=== PATIENT | male | born 1945 | race Caucasian/White ===

== ENCOUNTER 2016-08-08 12:35 | Emergency (ER) | payer MEDICARE ==
[2016-08-08 12:47] VITALS: BP 140/73; PULSE 76; RESP 20; TEMP 98
[2016-08-08] MEDS ORDERED: IBUPROFEN 800 MG TAB PO STA (12:52)
--- NOTE | 2016-08-08 12:54 | ED ---
Upper Extremity HPI - General Chief Complaint: Extremity Injury, Upper Stated Complaint: Hand Injury Time Seen by Provider: 08/08/16 12:50 Source: patient, RN notes reviewed Mode of arrival: ambulatory Limitations: no limitations - History of Present Illness Initial Comments: Patient is a 71-year-old male presents to emergency room for evaluation of right wrist pain. Patient states that he tripped and fell 2 days ago landing on his right wrist. Patient states he still having pain. Patient denies taking any Tylenol or Motrin for pain. Patient states been putting ice on the area with little relief of symptoms. Patient states having 8 out of 10 pain. Patient states the pain is worse when he presses over the area or flexes and extends his wrist. Patient denies any numbness or tingling in his fingers. Patient denies any other injuries during incident. - Related Data Home Medications Medication Instructions Recorded Confirmed No Known Home Medications [No 08/08/16 08/08/16 Known Home Medications] Allergies Allergy/AdvReac Type Severity Reaction Status Date / Time No Known Allergies Allergy Verified 08/08/16 12:47 Review of Systems ROS Statement: Those systems with pertinent positive or pertinent negative responses have been documented in the HPI. ROS Other: All systems not noted in ROS Statement are negative. Past Medical History Past Medical History: Hyperlipidemia, Hypertension History of Any Multi-Drug Resistant Organisms: None Reported Past Surgical History: No Surgical Hx Reported Past Psychological History: No Psychological Hx Reported Smoking Status: Current every day smoker Past Alcohol Use History: None Reported Past Drug Use History: None Reported General Exam - General Exam Comments Initial Comments: Sitting in exam room in no acute distress. Limitations: no limitations General appearance: alert, in no apparent distress Head exam: Present: atraumatic, normocephalic, normal inspection Eye exam: Present: normal appearance ENT exam: Present: normal exam Neck exam: Present: normal inspection Respiratory exam: Absent: respiratory distress Right Hand Wrist exam: Present: full ROM, tenderness (Tenderness on palpating over distal radius), swelling. Absent: ecchymosis, deformity Neuro motor exam: Present: thumb opposition intact, thumb IP flexion intact, thumb adduction intact, fingers 2-5 abduction intact Vascular: Present: normal capillary refill (Capillary refill less than 2 seconds ), radial pulse (2+), ulnar pulse (2+) Back exam: Present: normal inspection Neurological exam: Present: alert, oriented X3, CN II-XII intact, normal gait Psychiatric exam: Present: normal affect, normal mood Skin exam: Present: warm, dry, intact, normal color. Absent: rash Course Vital Signs 08/08/16 12:44 Temperature 98 F Pulse Rate 76 Respiratory 20 Rate Blood Pressure 140/73 O2 Sat by Pulse 98 Oximetry Procedures - Orthopedic Splinting/Casting Injury #1 Side: right Upper Extremity Injury Location: wrist Upper Extremity Immobilizer: volar splint (Short arm OCL volar splint placed. 3 x 12". Neurovascular function assessed and intact.) Medical Decision Making - Medical Decision Making Patient is a 71-year-old male presents to the emergency room for evaluation of right wrist pain. Right wrist/hand x-ray significant for distal minimally displaced radial fracture. Patient placed in a short arm volar splint and advised to follow-up with ear nose and throat specialist. Patient states he understands everything that was discussed with him. Return parameters discussed. Case discussed with Dr. Roach. - Radiology Data Radiology results: report reviewed, image reviewed Disposition Clinical Impression: Distal radius fracture, right, Fall Disposition: HOME SELF-CARE Condition: Good Instructions: Wrist Fracture in Adults (ED) Additional Instructions: Rest, elevate and ice on and off for 10-15 minutes for the next 24-48 hours. Do not get splint wet. Do not remove splint until follow-up with ear nose and throat specialist Please follow-up with ear nose and throat specialist in 24-48 hours. Take Tylenol or Motrin as needed for pain. If new symptoms develop or symptoms worsen, please return to the ER. Referrals: Jona Elise DO [Doctor of Osteopathic Medicine] - 1-2 days Time of Disposition: 13:22
--- NOTE | 2016-08-08 13:19 | XR ---
EXAMINATION TYPE: XR hand complete RT, XR wrist complete RT DATE OF EXAM: 08/08/2016 1:11 PM CLINICAL HISTORY: pain TECHNIQUE: Frontal, lateral and oblique images of the right hand and wrist are obtained. COMPARISON: None. FINDINGS: There is minimally displaced distal radial fracture without definite intra-articular extension. Mild soft tissue edema. No additional acute fractures seen. Chronic deformity of the fifth metacarpal. Rad ius is intact. IMPRESSION: Minimally displaced distal radial fracture. ICD 10 closed FRACTURE, INITIAL EVALUATION
== END 2016-08-08 13:35 | disposition home or self-care (01) ==
LOC: EC 12:35
DX: S52.501A Unspecified fracture of the lower end of right radius, initial encounter for closed fracture (principal); F17.200 Nicotine dependence, unspecified, uncomplicated; W01.0XXA Fall on same level from slipping, tripping and stumbling without subsequent striking against object, initial encounter
CPT/HCPCS: 29125; 99283

== ENCOUNTER → 2018-02-20 | Outpatient (CLI) | payer MEDICARE ==
--- NOTE | 2018-02-20 14:38 | XR ---
EXAMINATION TYPE: XR chest 2V DATE OF EXAM: 02/20/2018 COMPARISON: NONE HISTORY: Smoker TECHNIQUE: Frontal and lateral views of the chest are obtained on 3 images. FINDINGS: There is no focal air space opacity, pleural effusion, or pneumothorax seen. The cardiac silhouette size is within normal limits. Increased lung volumes suggest underlying COPD. The osseous structures are intact. IMPRESSION: No acute cardiopulmonary process. There may be underlying emphysema.
--- NOTE | 2018-02-20 14:41 | US ---
EXAMINATION TYPE: US duplex aorta DATE OF EXAM: 02/20/2018 COMPARISON: NONE CLINICAL HISTORY: Z13.9 ENCOUNTER FOR SCREENING. Smoker, high cholesterol, no HTN, No family hx of AA A EXAM MEASUREMENTS: Abdominal Aorta: Proximal: 2.2 x 2.1 cm Mid: 2.4 x 2.5 cm Distal: 1.9 x 2.3 cm Bifurcation: Right- 1.3 x 0.9 cm Left- 1.4 x 0.9 cm AAA seen between mid and distal Aorta - 3.1 x 3.2 cm Grayscale and color Doppler imaging performed IMPRESSION: Infrarenal abdominal aortic ectasia, follow-up recommended
== END | disposition home or self-care (01) ==
LOC: RADUSWWP 10:59
PROVIDERS: ATTEND Family Medicine
DX: I77.811 Abdominal aortic ectasia (principal); F17.200 Nicotine dependence, unspecified, uncomplicated
CPT/HCPCS: 71046; 93979

== ENCOUNTER → 2018-07-23 | Outpatient (CLI) | payer MEDICARE ==
--- NOTE | 2018-07-23 10:32 | XR ---
EXAMINATION TYPE: XR chest 2V DATE OF EXAM: 07/23/2018 COMPARISON: 02/20/2018 HISTORY: Shortness of breath TECHNIQUE: Frontal and lateral views of the chest are obtained. FINDINGS: Scattered senescent parenchymal changes noted. Hyperinflation compatible with COPD. No evidence for infiltrate. No evidence for atelectasis. Heart size is stable. Mediastinal structures are stable and grossly unremarkable. No evidence for hilar prominence. Degenerative changes dorsal spine. IMPRESSION: 1. No evidence for acute pulmonary disease.
== END ==
LOC: RADXRMAIN 10:11
PROVIDERS: ATTEND Physician Assistant
DX: J44.9 Chronic obstructive pulmonary disease, unspecified (principal)
CPT/HCPCS: 71046

== ENCOUNTER → 2018-10-01 | Outpatient (CLI) | payer MEDICARE ==
--- NOTE | 2018-10-01 12:08 | US ---
EXAMINATION TYPE: US duplex aorta DATE OF EXAM: 10/01/2018 COMPARISON: Prior ultrasound 02/20/2018 CLINICAL HISTORY: I71.4 Abd aortic aneurysm. EXAM MEASUREMENTS: Abdominal Aorta: Proximal: 2.4cm Mid: 3.2 cm Distal: 2.2cm Bifurcation: Rt:1.2cm Lt: 1.4cm AAA at mid distal area measuring 3.0 x 3.2. Extensive overlying bowel gas slightly limiting study. Grayscale, color Doppler, spectral Doppler imaging performed IMPRESSION: Abdominal aortic aneurysm appears stable.
== END ==
LOC: RADUSWWP 09:15
PROVIDERS: ATTEND Family Medicine
DX: I71.4 Abdominal aortic aneurysm, without rupture (principal)
CPT/HCPCS: 93979

== ENCOUNTER 2019-02-10 14:21 | Inpatient (IN) | payer MEDICARE ==
[2019-02-10 16:19] LABS: Basophils # (A) 0.1 k/uL (0-0.2); Basophils % (A) 1 %; Eosinophils # (A) 1.3 k/uL (0-0.7); Eosinophils % (A) 14 %; HCT 44.9 % (39.0-53.0); Hypochromasia Marked; Lymphocytes # (A) 1.1 k/uL (1.0-4.8); Lymphocytes % (A) 12 %; MCH 28.7 pg (25.0-35.0); Macrocytosis Slight; Mean Platelet Volume 6.2; Monocytes # (A) 0.5 k/uL (0-1.0); Monocytes % (A) 6 %; Neutrophils # (A) 5.8 k/uL (1.3-7.7); Neutrophils % (A) 65 %; Platelet Count 315 k/uL (150-450); RBC 4.54 m/uL (4.30-5.90); RDW 14.8 % (11.5-15.5); WBC 8.9 k/uL (3.8-10.6)
[2019-02-10 16:35] LABS: ALT 15 U/L (21-72); AST 19 U/L (17-59); African American GFR (CKD) >90 (>60 ml/min/1.73 sqM); Albumin 3.5 g/dL (3.5-5.0); Alkaline Phosphatase 77 U/L (38-126); Anion Gap 3 mmol/L; Blood Urea Nitrogen 11 mg/dL (9-20); C Reactive Protein 9.3 mg/L (<10.0); Calcium 8.7 mg/dL (8.4-10.2); Carbon Dioxide 38 mmol/L (22-30); Chloride 99 mmol/L (98-107); Glucose 135 mg/dL (74-99); Potassium 4.7 mmol/L (3.5-5.1); Sodium 140 mmol/L (137-145); Total Bilirubin 0.3 mg/dL (0.2-1.3); Total Protein 6.5 g/dL (6.3-8.2)
--- NOTE | 2019-02-10 17:07 | US ---
EXAMINATION TYPE: US venous doppler duplex LE LT DATE OF EXAM: 02/10/2019 3:57 PM COMPARISON: NONE CLINICAL HISTORY: edema. SIDE PERFORMED: Left TECHNIQUE: The lower extremity deep venous system is examined utilizing real time linear array sonog harman with graded compression, doppler sonography and color-flow sonography. VESSELS IMAGED: External Iliac Vein (EIV) Common Femoral Vein Deep Femoral Vein Greater Saphenous Vein * Femoral Vein Popliteal Vein Small Saphenous Vein * Proximal Calf Veins (* superficial vessels) Multiple enlarged nodes noted left groin. Left Leg: Negative for DVT IMPRESSION: There are inguinal lymph nodes. Appear morphologically normal. No evidence of deep venous thrombosis in the left leg.
[2019-02-10 17:16] LABS: Erythrocyte Sedimentation Rate 13 mm/hr (0-15)
[2019-02-10] MEDS ORDERED: AMPICILLIN-SULBACTAM 3 GM in SODIUM CHLORIDE 0.9% 100 ML IVPB STA (17:32)
[2019-02-10] MEDS ORDERED: VANCOMYCIN 1,500 MG in SODIUM CHLORIDE 0.9% 250 ML IVPB STA (17:33)
[2019-02-10] MEDS ORDERED: NALOXONE 0.4 MG/ML 1 ML VIAL IV PRN (17:37)
--- NOTE | 2019-02-10 17:37 | ED ---
Extremity Problem HPI - General Chief complaint: Extremity Problem,Nontraumatic Stated complaint: Foot Swelling Time Seen by Provider: 02/10/19 14:55 Source: patient, family Mode of arrival: wheelchair Limitations: no limitations - History of Present Illness Initial comments: The patient is a 73-year-old male with minimal past medical history who presents to the emergency room with reported swollen left lower extremity. The patient has recently for scabies. States that his lower extremities were very pruritic and he was itching them. He does have some open wounds his left lower extremity. He also developed significant left lower extremity edema. No history of DVT or PE. Admits to mild pain in his lower extremity which has affected his ambulation. Denies a history of congestive heart failure. Denies orthopnea, cough, fevers or chills. No chest pain or shortness of breath. He does wear chronic oxygen at home for COPD. Denies any trauma to the extremity. Does note warmth and redness. Denies any abdominal pain or distention. There are no other alleviating, precipitating or modifying factors - Related Data Previous Rx's Medication Instructions Recorded Acetaminophen Tab [Tylenol] 650 mg PO Q6HR PRN tab 02/14/19 Cephalexin [Keflex] 500 mg PO Q8HR #21 cap 02/14/19 Ipratropium-Albuterol Nebulize 3 ml INHALATION RT-QID ampul.neb 02/14/19 [Duoneb 0.5 mg-3 mg/3 ml Soln] Nicotine 21Mg/24Hr Patch [Habitrol] 1 patch TRANSDERM DAILY #30 patch 02/14/19 Nystatin 100,000 Unit/gm Oint 1 applic TOPICAL BID #1 tube 02/14/19 [Mycostatin Oint] Pantoprazole [Protonix] 40 mg PO DAILY #30 tablet.dr 02/14/19 Triamcinolone 0.1% Ointment 1 applic TOPICAL BID #1 tube 02/14/19 [Kenalog 0.1% Ointment] predniSONE 10 mg PO DIRECTED #30 tab 02/14/19 Allergies Allergy/AdvReac Type Severity Reaction Status Date / Time No Known Allergies Allergy Verified 02/10/19 15:12 Review of Systems ROS Statement: Those systems with pertinent positive or pertinent negative responses have been documented in the HPI. ROS Other: All systems not noted in ROS Statement are negative. Past Medical History Past Medical History: COPD, Hyperlipidemia, Hypertension History of Any Multi-Drug Resistant Organisms: None Reported Past Surgical History: No Surgical Hx Reported Past Psychological History: No Psychological Hx Reported Smoking Status: Current every day smoker Past Alcohol Use History: None Reported Past Drug Use History: None Reported General Exam Limitations: no limitations General appearance: alert, in no apparent distress Head exam: Present: atraumatic, normocephalic Eye exam: Present: normal appearance, PERRL ENT exam: Present: normal exam, mucous membranes moist Respiratory exam: Present: wheezes, decreased breath sounds Cardiovascular Exam: Present: regular rate, normal rhythm GI/Abdominal exam: Present: soft. Absent: distended, tenderness, guarding, rebound, rigid Extremities exam: Present: other (left lower extremity has 4+ pitting edema which extends from below the knee to the foot. No crepitance. ) Neurological exam: Present: alert, oriented X3 Psychiatric exam: Present: normal mood Skin exam: Present: warm, dry, other (linear abrasions. Entire left calf is warm to the touch, swollen. No induration or drainage. ) Course Vital Signs 02/10/19 02/10/19 02/10/19 14:50 15:06 15:30 Temperature 97.4 F L Pulse Rate 76 Respiratory 16 16 Rate Blood Pressure 119/65 135/82 135/82 O2 Sat by Pulse 95 99 98 Oximetry 02/10/19 02/10/19 02/10/19 16:00 16:30 17:00 Temperature Pulse Rate 72 Respiratory 18 19 Rate Blood Pressure 138/96 137/76 142/77 O2 Sat by Pulse 97 93 L 98 Oximetry 02/10/19 02/10/19 02/10/19 17:30 18:19 18:38 Temperature 97.6 F Pulse Rate 79 80 Respiratory 18 Rate Blood Pressure 165/86 122/99 O2 Sat by Pulse 91 L 93 L Oximetry Medical Decision Making - Medical Decision Making Upon arrival the patient is placed into room 22. A thorough history and physical exam was performed. I did recommend laboratory studies. CBC and CMP are unremarkable. BNP is elevated at 536. Venous duplex is performed and demonstrates no clot. I did discuss his results the patient. Because of the clinical picture, I did recommend hospital admission for IV antibiotics. Patient and his family did agree to this. I ordered blood cultures. The patien t was placed on Unasyn and Vanco. I called and discussed the case with Dr. Huitron who accepted admission for the patient. He requested that I consult Dr. Galo. Patient was transferred to the floor in stable condition - Lab Data Result diagrams: 02/14/19 10:13 02/14/19 10:13 Lab Results 02/10/19 02/10/19 02/10/19 Range/Units 16:10 16:10 16:10 WBC 8.9 (3.8-10.6) k/uL RBC 4.54 (4.30-5.90) m/uL Hgb 13.0 (13.0-17.5) gm/dL Hct 44.9 (39.0-53.0) % MCV 99.0 (80.0-100.0) fL MCH 28.7 (25.0-35.0) pg MCHC 29.0 L (31.0-37.0) g/dL RDW 14.8 (11.5-15.5) % Plt Count 315 (150-450) k/uL Neutrophils % 65 % Lymphocytes % 12 % Monocytes % 6 % Eosinophils % 14 % Basophils % 1 % Neutrophils # 5.8 (1.3-7.7) k/uL Lymphocytes # 1.1 (1.0-4.8) k/uL Monocytes # 0.5 (0-1.0) k/uL Eosinophils # 1.3 H (0-0.7) k/uL Basophils # 0.1 (0-0.2) k/uL Hypochromasia Marked Macrocytosis Slight ESR 13 (0-15) mm/hr Sodium 140 (137-145) mmol/L Potassium 4.7 (3.5-5.1) mmol/L Chloride 99 (98-107) mmol/L Carbon Dioxide 38 H (22-30) mmol/L Anion Gap 3 mmol/L BUN 11 (9-20) mg/dL Creatinine 0.80 (0.66-1.25) mg/dL Est GFR (CKD-EPI)AfAm >90 (>60 ml/min/1.73 sqM) Est GFR (CKD-EPI)NonAf 89 (>60 ml/min/1.73 sqM) Glucose 135 H (74-99) mg/dL Estimated Ave Glu mg/dL Hemoglobin A1c (4.0-6.0) % Calcium 8.7 (8.4-10.2) mg/dL Total Bilirubin 0.3 (0.2-1.3) mg/dL AST 19 (17-59) U/L ALT 15 L (21-72) U/L Alkaline Phosphatase 77 (38-126) U/L C-Reactive Protein 9.3 (<10.0) mg/L NT-Pro-B Natriuret Pep 536 pg/mL Total Protein 6.5 (6.3-8.2) g/dL Albumin 3.5 (3.5-5.0) g/dL TSH (0.465-4.680) mIU/L 02/10/19 02/10/19 02/11/19 Range/Units 16:10 16:10 07:38 WBC 9.2 (3.8-10.6) k/uL RBC 4.50 (4.30-5.90) m/uL Hgb 13.6 (13.0-17.5) gm/dL Hct 45.4 (39.0-53.0) % MCV 100.9 H (80.0-100.0) fL MCH 30.2 (25.0-35.0) pg MCHC 29.9 L (31.0-37.0) g/dL RDW 14.6 (11.5-15.5) % Plt Count 320 (150-450) k/uL Neutrophils % 60 % Lymphocytes % 15 % Monocytes % 7 % Eosinophils % 15 % Basophils % 1 % Neutrophils # 5.5 (1.3-7.7) k/uL Lymphocytes # 1.4 (1.0-4.8) k/uL Monocytes # 0.6 (0-1.0) k/uL Eosinophils # 1.4 H (0-0.7) k/uL Basophils # 0.1 (0-0.2) k/uL Hypochromasia Marked Macrocytosis Slight ESR (0-15) mm/hr Sodium (137-145) mmol/L Potassium (3.5-5.1) mmol/L Chloride (98-107) mmol/L Carbon Dioxide (22-30) mmol/L Anion Gap mmol/L BUN (9-20) mg/dL Creatinine (0.66-1.25) mg/dL Est GFR (CKD-EPI)AfAm (>60 ml/min/1.73 sqM) Est GFR (CKD-EPI)NonAf (>60 ml/min/1.73 sqM) Glucose (74-99) mg/dL Estimated Ave Glu mg/dL 154 Hemoglobin A1c 7.0 H (4.0-6.0) % Calcium (8.4-10.2) mg/dL Total Bilirubin (0.2-1.3) mg/dL AST (17-59) U/L ALT (21-72) U/L Alkaline Phosphatase (38-126) U/L C-Reactive Protein (<10.0) mg/L NT-Pro-B Natriuret Pep pg/mL Total Protein (6.3-8.2) g/dL Albumin (3.5-5.0) g/dL TSH 2.950 (0.465-4.680) mIU/L 02/11/19 02/12/19 02/12/19 Range/Units 07:38 07:24 07:24 WBC 9.2 (3.8-10.6) k/uL RBC 4.17 L (4.30-5.90) m/uL Hgb 12.4 L (13.0-17.5) gm/dL Hct 41.7 (39.0-53.0) % MCV 100.0 (80.0-100.0) fL MCH 29.7 (25.0-35.0) pg MCHC 29.7 L (31.0-37.0) g/dL RDW 14.7 (11.5-15.5) % Plt Count 321 (150-450) k/uL Neutrophils % 63 % Lymphocytes % 11 % Monocytes % 6 % Eosinophils % 16 % Basophils % 2 % Neutrophils # 5.8 (1.3-7.7) k/uL Lymphocytes # 1.0 (1.0-4.8) k/uL Monocytes # 0.6 (0-1.0) k/uL Eosinophils # 1.5 H (0-0.7) k/uL Basophils # 0.2 (0-0.2) k/uL Hypochromasia Marked Macrocytosis Slight ESR (0-15) mm/hr Sodium 140 138 (137-145) mmol/L Potassium 5.3 H 4.4 (3.5-5.1) mmol/L Chloride 101 100 (98-107) mmol/L Carbon Dioxide 37 H 34 H (22-30) mmol/L Anion Gap 2 4 mmol/L BUN 14 12 (9-20) mg/dL Creatinine 0.82 0.76 (0.66-1.25) mg/dL Est GFR (CKD-EPI)AfAm >90 >90 (>60 ml/min/1.73 sqM) Est GFR (CKD-EPI)NonAf 88 >90 (>60 ml/min/1.73 sqM) Glucose 109 H 109 H (74-99) mg/dL Estimated Ave Glu mg/dL Hemoglobin A1c (4.0-6.0) % Calcium 8.3 L 8.1 L (8.4-10.2) mg/dL Total Bilirubin (0.2-1.3) mg/dL AST (17-59) U/L ALT (21-72) U/L Alkaline Phosphatase (38-126) U/L C-Reactive Protein (<10.0) mg/L NT-Pro-B Natriuret Pep pg/mL Total Protein (6.3-8.2) g/dL Albumin (3.5-5.0) g/dL TSH (0.465-4.680) mIU/L Disposition Clinical Impression: Cellulitis and abscess of left leg Disposition: ADMITTED IP TO THIS HOSP Condition: Stable Is patient prescribed a controlled substance at d/c from ED?: No Decision to Admit Reason: Admit from EC Decision Date: 02/10/19 Decision Time: 17:37
[2019-02-10] MEDS ORDERED: VANCOMYCIN IV PER PHARMACY 1 EACH MISC MISCELLANE PRN (18:32)
[2019-02-10] MEDS ORDERED: ACETAMINOPHEN TAB 325 MG TAB PO PRN (19:51)
[2019-02-10] MEDS: IPRATROPIUM-ALBUTEROL 3 ML NEB INHALATION SCH (21:11)
[2019-02-10] MEDS ORDERED: IPRATROPIUM-ALBUTEROL 3 ML NEB INHALATION PRN (21:12)
--- NOTE | 2019-02-10 21:19 | HP ---
HISTORY AND PHYSICAL 73-year-old white male with bad hearing loss and COPD. Takes albuterol updrafts at home. Apparently, came in with severely left leg swelling over the past 2 weeks, large redness and swelling, came to the emergency room. Progressive large amount of cellulitis from the toes up to the knee. A large amount of the lymphedema type changes. Left leg ultrasound for DVT was negative. Apparently his only home medicines are albuterol or DuoNeb updrafts t.i.d. at home. SOCIAL HISTORY: Smokes and does not do alcohol intermittently. REVIEW OF SYSTEMS: Negative except for redness and swelling in the left leg and COPD with some dyspnea. PHYSICAL EXAM: Vital signs stable. Afebrile. Cardiovascular: S1, S2. Lungs scattered wheeze x4. Rhonchi x4. Hematology: Left leg lymphedema type changes with redness and scab formation from the toes up to the knee. Cardiovascular: S1-S2. Lungs scattered wheeze x4. Psych: Fair mood and affect. HEENT: Hearing loss bilaterally, gives appropriate answers, but he cannot hear you. Psych: Fair mood and affect. ASSESSMENT: 1. Cellulitis, left leg. 2. Lymphedema, left leg. 3. Chronic obstructive pulmonary disease. Continue with IV antibiotics, lymphedema type. Compression stockings will be given. IV vancomycin. Infectious disease consult will be done. MMODL / IJN: [id number] /
[2019-02-11] MEDS ORDERED: VANCOMYCIN 1,500 MG in SODIUM CHLORIDE 0.9% 250 ML IVPB SCH (07:00)
[2019-02-11] MEDS: IPRATROPIUM-ALBUTEROL 3 ML NEB INHALATION SCH ×4 (07:28→19:37)
[2019-02-11 08:08] LABS: African American GFR (CKD) >90 (>60 ml/min/1.73 sqM); Anion Gap 2 mmol/L; Blood Urea Nitrogen 14 mg/dL (9-20); Calcium 8.3 mg/dL (8.4-10.2); Carbon Dioxide 37 mmol/L (22-30); Chloride 101 mmol/L (98-107); Glucose 109 mg/dL (74-99); Potassium 5.3 mmol/L (3.5-5.1); Sodium 140 mmol/L (137-145)
[2019-02-11 08:19] LABS: Basophils # (A) 0.1 k/uL (0-0.2); Basophils % (A) 1 %; Eosinophils # (A) 1.4 k/uL (0-0.7); Eosinophils % (A) 15 %; HCT 45.4 % (39.0-53.0); HGB 13.6 gm/dL (13.0-17.5); Hypochromasia Marked; Lymphocytes # (A) 1.4 k/uL (1.0-4.8); Lymphocytes % (A) 15 %; MCH 30.2 pg (25.0-35.0); MCHC 29.9 g/dL (31.0-37.0); MCV 100.9 fL (80.0-100.0); Macrocytosis Slight; Monocytes # (A) 0.6 k/uL (0-1.0); Monocytes % (A) 7 %; Neutrophils # (A) 5.5 k/uL (1.3-7.7); Neutrophils % (A) 60 %; Platelet Count 320 k/uL (150-450); RDW 14.6 % (11.5-15.5); WBC 9.2 k/uL (3.8-10.6)
--- NOTE | 2019-02-11 12:01 | XR ---
EXAMINATION TYPE: XR chest 2V DATE OF EXAM: 02/11/2019 COMPARISON: Prior chest x-ray 07/23/2018 HISTORY: COPD TECHNIQUE: Frontal and lateral views of the chest are obtained. FINDINGS: There are prominent lung volumes present consistent with patient's history of COPD. Interst itium is increased. Aorta is dense. There is no focal air space opacity, pleural effusion, or pneumot horax seen. The cardiac silhouette size is within normal limits. The osseous structures are intact . Thoracic spondylosis is noted. IMPRESSION: No acute cardiopulmonary process. Possible interstitial lung disease.
[2019-02-11] MEDS ORDERED: NYSTAT-TRIAMCIN 100,000-0.1 UNIT/GM-% OINT 30 GM TUBE TOPICAL SCH (13:00)
[2019-02-11] MEDS: NYSTATIN 100,000 UNIT/GM OINT 30 GM TUBE TOPICAL SCH ×2 (13:40→20:48)
[2019-02-11] MEDS: TRIAMCINOLONE ACET 0.1% OINTMENT 15 GM TUBE TOPICAL SCH ×2 (13:40→20:48)
[2019-02-11] MEDS: BUDESONIDE 0.5 MG/2 ML NEBU INHALATION SCH (19:36)
--- NOTE | 2019-02-11 23:03 | P.CONS ---
History of Present Illness - Reason for Consult Consult date: 02/11/19 left lower extremity cellulitis Requesting physician: Chaitanya Huitron - Chief Complaint left leg swelling x few days - History of Present Illness patient is a 73 year male presented to the ER with the chief complaints of left leg swelling and redness that has been going on for the last few days patient denies any history of any trauma he did have less mobility r ecently but no long travel patient also have dry cracking skin to the left leg as well as to the left foot patient did have some malingering pain to the left leg area and this is about 5-10 and no radiation patient did have some blood but denies high-grade fever with these symptoms patient was evaluated by the physician on arrival. The patient has been afebrile but was normal he did have lower extremity Doppler was negative for DVT patient was started on vancomycin has been in the hospital infection does was consulted for further recommendation regarding antibiotic therapy Review of Systems Positive point has been mentioned in the HPI rest of the systems are negative Past Medical History Past Medical History: COPD, Hyperlipidemia, Hypertension Additional Past Medical History / Comment(s): Pt is poor historian, is unsure History of Any Multi-Drug Resistant Organisms: None Reported Past Surgical History: No Surgical Hx Reported Past Anesthesia/Blood Transfusion Reactions: No Reported Reaction Past Psychological History: No Psychological Hx Reported Smoking Status: Current every day smoker Past Alcohol Use History: None Reported Past Drug Use History: None Reported Medications and Allergies Home Medications Medication Instructions Recorded Confirmed Type No Known Home Medications 08/08/16 02/10/19 History Allergies Allergy/AdvReac Type Severity Reaction Status Date / Time No Known Allergies Allergy Verified 02/10/19 15:12 Physical Exam Vitals: Vital Signs Temp Pulse Pulse Resp BP Pulse Ox 02/11/19 22:43 20 02/11/19 19:50 80 02/11/19 19:49 98.3 F 89 146/76 91 L 02/11/19 19:37 80 02/11/19 16:14 78 02/11/19 16:01 78 02/11/19 12:54 97.8 F 76 16 127/65 93 L 02/11/19 11:02 80 02/11/19 10:52 76 02/11/19 07:37 80 02/11/19 07:28 74 90 L 02/11/19 05:00 97.9 F 76 18 137/84 94 L 02/11/19 00:00 20 Intake and Output 02/11/19 02/11/19 02/11/19 06:59 14:59 22:59 Intake Total 200 480 Output Total 250 Balance -50 480 Intake: Oral 200 480 Output: Urine 250 Other: Voiding Method Toilet Toilet Toilet Urinal Urinal Urinal # Voids 0 4 # Bowel Movements 0 GENERAL DESCRIPTION: an elderly male lying in bed, no distress. No tachypnea or accessory muscle of respiration use. HEENT: Shows Pallor , no scleral icterus. Oral mucous membrane is dry. No pharyngeal erythema or thrush NECK: Trachea central, no thyromegaly. LUNGS: Unlabored breathing. Clear to auscultation anteriorly. No wheeze or crackle. HEART: S1, S2, regular rate and rhythm. No loud murmur ABDOMEN: Soft, no tenderness , guarding or rigidity, no organomegaly EXTREMITIES: left leg with diffuse swelling redness or dry cracking skin no foul-smelling drainage SKIN: No rash, no masses palpable. NEUROLOGICAL: The patient is awake, alert, oriented x3, mood and affect normal. Results CBC & Chem 7: 02/11/19 07:38 02/11/19 07:38 Labs: Abnormal Lab Results - Last 24 Hours (Table) 02/10/19 02/11/19 02/11/19 Range/Units 16:10 07:38 07:38 MCV 100.9 H (80.0-100.0) fL MCHC 29.9 L (31.0-37.0) g/dL Eosinophils # 1.4 H (0-0.7) k/uL Potassium 5.3 H (3.5-5.1) mmol/L Carbon Dioxide 37 H (22-30) mmol/L Glucose 109 H (74-99) mg/dL Hemoglobin A1c 7.0 H (4.0-6.0) % Calcium 8.3 L (8.4-10.2) mg/dL Microbiology - Last 24 Hours (Table) 02/10/19 18:05 Blood Culture - Preliminary Blood No Growth after 24 hours Assessment and Plan Assessment: 1-patient with left leg swelling redness which has been diffusely dry cracking skin component of cellulitis likely from gram-positive skin wilfrido clinically doubt MRSA or gram-negative infection (1) Left leg cellulitis Current Visit: Yes Status: Acute Code(s): L03.116 - CELLULITIS OF LEFT LOWER LIMB SNOMED Code(s): 037117323 Plan: 1-discontinue the vancomycin 2-cefazolin 2 g every 8 hours 3-Mycolog cream to the left leg twice a day We will follow on clinical condition and cultures to further adjust medication if needed Thank you for this consultation will follow this patient with you Time with Patient: Greater than 30
[2019-02-12 08:23] LABS: Basophils % (A) 2 %; Eosinophils % (A) 16 %; HCT 41.7 % (39.0-53.0); HGB 12.4 gm/dL (13.0-17.5); Hypochromasia Marked; Lymphocytes % (A) 11 %; MCH 29.7 pg (25.0-35.0); MCHC 29.7 g/dL (31.0-37.0); Macrocytosis Slight; Mean Platelet Volume 6.6; Monocytes % (A) 6 %; Neutrophils % (A) 63 %; Platelet Count 321 k/uL (150-450); RBC 4.17 m/uL (4.30-5.90); RDW 14.7 % (11.5-15.5); WBC 9.2 k/uL (3.8-10.6)
[2019-02-12 08:24] LABS: Basophils # (A) 0.2 k/uL (0-0.2); Eosinophils # (A) 1.5 k/uL (0-0.7); Monocytes # (A) 0.6 k/uL (0-1.0); Neutrophils # (A) 5.8 k/uL (1.3-7.7)
[2019-02-12 08:30] LABS: African American GFR (CKD) >90 (>60 ml/min/1.73 sqM); Anion Gap 4 mmol/L; Blood Urea Nitrogen 12 mg/dL (9-20); Calcium 8.1 mg/dL (8.4-10.2); Carbon Dioxide 34 mmol/L (22-30); Chloride 100 mmol/L (98-107); Glucose 109 mg/dL (74-99); Potassium 4.4 mmol/L (3.5-5.1); Sodium 138 mmol/L (137-145)
[2019-02-12] MEDS: TRIAMCINOLONE ACET 0.1% OINTMENT 15 GM TUBE TOPICAL SCH ×2 (08:38→20:56)
[2019-02-12] MEDS: NYSTATIN 100,000 UNIT/GM OINT 30 GM TUBE TOPICAL SCH ×2 (08:38→20:56)
[2019-02-12] MEDS: IPRATROPIUM-ALBUTEROL 3 ML NEB INHALATION SCH ×4 (09:14→20:17)
[2019-02-12] MEDS: BUDESONIDE 0.5 MG/2 ML NEBU INHALATION SCH ×2 (09:14→20:17)
[2019-02-12] MEDS ORDERED: PERMETHRIN 1% CREME RINSE 59 ML LIQUID TOPICAL ONE (15:16)
[2019-02-12] MEDS ORDERED: PERMETHRIN 5% CREAM 60 GM TUBE TOPICAL ONE ×2 (16:00→20:00)
[2019-02-12] MEDS: NICOTINE 21MG/24HR PATCH TRANSDERM SCH (17:14)
--- NOTE | 2019-02-12 17:16 | P.PN ---
Subjective Progress Note Date: 02/11/19 This is 73-year-old gentleman admitted with cellulitis of bilateral legs, left greater than right, scabies, lymphedema, COPD, hard of hearing, hypertension, ongoing nicotine dependence and multiple other medical issues. Progressive cellulitis on bilateral legs, torso, arms-recently received one treatment from dermatology for scabies. Placed in a private room with contact isolation maintained. Doppler ultrasound left leg negative for DVT. Maintained on IV vancomycin .Infectious disease and dermatology consult in place with recommendations pending. Cultures pending. Hemoglobin A1c ordered and pending. Afebrile, denies cough. Afebrile, normal WBC. BUN 14, Creatinine 0.82.Potassium 5.3. Denies chest pain, palpitations, increased shortness of breath. Objective - Vital Signs Vital signs: Vital Signs Temp 97.8 F 02/11/19 12:54 Pulse 78 02/11/19 16:14 Resp 16 02/11/19 12:54 BP 127/65 02/11/19 12:54 Pulse Ox 93 L 02/11/19 12:54 Intake & Output 02/10/19 02/11/19 02/11/19 18:59 06:59 18:59 Intake Total 450 480 Output Total 250 Balance 200 480 Weight 77.111 kg Intake: Oral 450 480 Output: Urine 250 Other: Voiding Method Toilet Toilet Urinal Urinal # Voids 0 4 # Bowel Movements 0 - Exam PHYSICAL EXAM: VITAL SIGNS: As above GENERAL: Sitting up in bed, no acute distress HEENT: Conjunctivae normal. eyes normal. Oral mucosa moist, very hard of hearing NECK: No JVD. No thyroid enlargement. No LNs CARDIOVASCULAR: S1, S2 regular.No murmur RESPIRATION: Breath sounds diminished in the bases. Occasional scattered rhonchi, no crackles. Positive expiratory wheezing ABDOMEN: Soft, nontender . No guarding. no masses palpable. No ascites, No hepatosplenomegaly.Bowel sounds heard. LEGS: Left leg edema, lymphedema bilateral lower extremity redness with scabs scattered. PSYCHIATRY: Alert and oriented X3, mood and affect normal. NERVOUS SYSTEM: Cranial N 2-12 grossly normal. Moves all 4 limbs. Diffuse weakness No focal deficits. Strength and sensation grossly intact.. Skin: Scattered rash, redness with scabs over her bilateral legs, torso, arms - Labs CBC & Chem 7: 02/12/19 07:24 02/12/19 07:24 Labs: Abnormal Lab Results - Last 24 Hours (Table) 02/10/19 02/11/19 02/11/19 Range/Units 16:10 07:38 07:38 MCV 100.9 H (80.0-100.0) fL MCHC 29.9 L (31.0-37.0) g/dL Eosinophils # 1.4 H (0-0.7) k/uL Potassium 5.3 H (3.5-5.1) mmol/L Carbon Dioxide 37 H (22-30) mmol/L Glucose 109 H (74-99) mg/dL Hemoglobin A1c 7.0 H (4.0-6.0) % Calcium 8.3 L (8.4-10.2) mg/dL Assessment and Plan Assessment: -Cellulitis of bilateral legs left greater than right secondary to scabies -Scabies rash lower legs, torso, arms -Left leg lymphedema -COPD - Plan: Continue on current medication regime ,monitoring and symptomatic treatm ent. Maintain IV antibiotics. Close monitoring of renal function, repeat labs ordered for a.m. Kwell lotion orders given to be applied from head to toe. ID and dermatology consulted, recommendations pending
[2019-02-12] MEDS: PANTOPRAZOLE 40 MG/10 ML VIAL IVP SCH (17:18)
--- NOTE | 2019-02-12 17:24 | P.PN ---
Subjective Progress Note Date: 02/12/19 This is 73-year-old gentleman admitted with cellulitis of bilateral legs, left greater than right, scabies, lymphedema, COPD, hard of hearing, hypertension, ongoing nicotine dependence and multiple other medical issues. Progressive cellulitis on bilateral legs, torso, arms-recently received one treatment from dermatology for scabies. Placed in a private room with contact isolation maintained. Doppler ultrasound left leg negative for DVT. Maintained on IV vancomycin .Infectious disease and dermatology consult in place with recommendations pending. Cultures pending. Hemoglobin A1c ordered and pending. Afebrile, denies cough. Afebrile, normal WBC. BUN 14, Creatinine 0.82.Potassium 5.3. Denies chest pain, palpitations, increased shortness of breath. 02/11/2019 hemoglobin A1c 7. Evaluated by infectious disease with recommendations noted and appreciated. Vancomycin discontinued with cefazolin initiated with Mycolog cream. Significant rash over entire body-scabies appearing. Chest x-ray reporting no acute cardiopulmonary process, possible interstitial lung disease. Maintained on nebulized bronchodilators, Pulmicort. Afebrile, cultures pending. CO2 34. Objective - Vital Signs Vital signs: Vital Signs Temp 97.8 F 02/12/19 14:32 Pulse 78 02/12/19 15:47 Resp 16 02/12/19 15:46 BP 128/68 02/12/19 14:32 Pulse Ox 94 L 02/12/19 14:32 Intake & Output 02/11/19 02/12/19 02/12/19 18:59 06:59 18:59 Intake Total 480 Balance 480 Intake: Oral 480 Other: Voiding Method Toilet Toilet Urinal Urinal # Voids 4 - Exam PHYSICAL EXAM: VITAL SIGNS: As above GENERAL: Sitting up in bed, no acute distress HEENT: Conjunctivae normal. eyes normal. Oral mucosa moist, very hard of hearing NECK: No JVD. No thyroid enlargement. No LNs CARDIOVASCULAR: S1, S2 regular.No murmur RESPIRATION: Breath sounds diminished in the bases. Occasional scattered rhonchi, no crackles. No wheezing ABDOMEN: Soft, nontender . No guarding. no masses palpable. Bowel sounds heard. LEGS: Left leg edema, lymphedema bilateral lower extremity redness with scabs scattered. PSYCHIATRY: Alert and oriented X3, mood and affect normal. NERVOUS SYSTEM: Cranial N 2-12 grossly normal. Moves all 4 limbs. Diffuse weakness No focal deficits. Strength and sensation grossly intact.. Skin: Scattered rash, redness with scabs over her bilateral legs, torso, arms - Labs CBC & Chem 7: 02/12/19 07:24 02/12/19 07:24 Labs: Abnormal Lab Results - Last 24 Hours (Table) 02/12/19 02/12/19 Range/Units 07:24 07:24 RBC 4.17 L (4.30-5.90) m/uL Hgb 12.4 L (13.0-17.5) gm/dL MCHC 29.7 L (31.0-37.0) g/dL Eosinophils # 1.5 H (0-0.7) k/uL Carbon Dioxide 34 H (22-30) mmol/L Glucose 109 H (74-99) mg/dL Calcium 8.1 L (8.4-10.2) mg/dL Microbiology - Last 24 Hours (Table) 02/10/19 18:05 Blood Culture - Preliminary Blood No Growth after 24 hours Assessment and Plan Assessment: -Cellulitis of bilateral legs left greater than right secondary to scabies -Scabies rash lower legs, torso, arms -Left leg lymphedema -COPD -Possible interstitial lung disease -Acute hypoxic respiratory failure secondary to the above -Ongoing nicotine dependence Plan: Continue on current medication regime ,monitoring and symptomatic treatment. IV antibiotics and wound care as per infectious disease. Kwell lotion ordered. Close monitoring of renal function, repeat labs ordered for a.m. Dermatology consulted, recommendations pending. Smoking cessation reinforced. Continue on nicotine patch. Further recommendations to follow. The impression and plan of care has been dictated as directed. : I performed a history and examination of this patient, discussed the same with the dictator. I agree with the dictator's note ,documented as a scribe. Any additional findings or plans will be noted.
[2019-02-12] MEDS: INSULIN ASPART (NovoLOG) 100 UNIT/ML VIAL SQ SCH ×2 (17:30→21:06)
--- NOTE | 2019-02-12 19:06 | CONS ---
CONSULTATION DATE OF SERVICE: 02/12/2019. REQUESTING PHYSICIAN: Dr. Chaitanya Huitron. REASON FOR CONSULTATION: Scabies. HISTORY OF PRESENT ILLNESS: The patient is a 73-year-old male who was admitted to [facility] for cellulitis of the left leg and has been treated with IV antibiotics. Dermatology has been consulted for a rash. He was evaluated by Dermatology about a week ago and was diagnosed with scabies. He was given an IM triamcinolone 40 mg injection in the office. He completed treatment with oral ivermectin as directed. He also completed treatment with topical permethrin and all family members were also treated with the permethrin topical concurrently. His linens were cleaned as directed. He states the rash got worse after he did the treatment with the topical permethrin. He states the itching is somewhat improved since he did the treatment. PAST MEDICAL HISTORY: COPD, diabetes, and hearing loss. PAST SURGICAL HISTORY: None reported. MEDICATIONS: See MAR. ALLERGIES: No known drug allergies. SOCIAL HISTORY: Current every day smoker. Denies EtOH use. REVIEW OF SYSTEMS: Rash as per history of present illness. PHYSICAL EXAM: The patient has an eczematous scaly red patches and excoriations located on his chest, abdomen, back, both arms and both legs. ASSESSMENT: 1. Contact dermatitis related to permethrin. 2. Scabies treated, unable to assess for improvement due to skin irritation from permethrin use. PLAN: 1. Start betamethasone ointment apply to affected areas on body twice daily for 2 weeks. 2. Follow up at [facility] after discharge from the hospital. Thank you for the consultation. MMODL / IJN: [id number] / YUNG
[2019-02-12] MEDS: BETAMETHASONE DIPROPIONATE 0.05% OINTMENT 45 GM TUBE TOPICAL SCH (19:54)
[2019-02-12 20:24] LABS: Glucose,Whole Blood 140 mg/dL (75-99)
--- NOTE | 2019-02-12 22:32 | PN ---
PROGRESS NOTE DATE OF SERVICE: 02/12/2019. REASON FOR FOLLOWUP: Left lower extremity cellulitis. INTERVAL HISTORY: The patient is currently afebrile. Patient has been breathing comfortably. The patient denies having any chest pain. No shortness of breath or cough. No nausea, vomiting. The left leg swelling and redness has slightly decreased. PHYSICAL EXAMINATION: Blood pressure 107/53 with a pulse of 73, temperature 97.8. He is 93% on 2 L nasal cannula. General description is an elderly male lying in bed in no distress. Respiratory system: Unlabored breathing, clear to auscultation anteriorly. Heart S1, S2. Regular rate and rhythm. Abdomen soft. No tenderness. Left leg swelling and redness increased. LABS: Hemoglobin 12.4, white count 9.2, BUN of 34, creatinine 0.76. DIAGNOSTIC IMPRESSION AND PLAN: Patient with left leg swelling and redness with concern for possible dermatitis/cellulitis. The patient clinically responding to cefazolin, continue and monitor his clinical course closely. Family at the bedside. Questions were answered. MMODL / IJN: [id number] /
[2019-02-13 07:05] LABS: Glucose,Whole Blood 96 mg/dL (75-99)
[2019-02-13] MEDS: INSULIN ASPART (NovoLOG) 100 UNIT/ML VIAL SQ SCH ×4 (08:22→21:39)
[2019-02-13] MEDS: NICOTINE 21MG/24HR PATCH TRANSDERM SCH (08:24)
[2019-02-13] MEDS: PANTOPRAZOLE 40 MG/10 ML VIAL IVP SCH (08:24)
[2019-02-13] MEDS: IPRATROPIUM-ALBUTEROL 3 ML NEB INHALATION SCH ×4 (08:25→19:51)
[2019-02-13] MEDS: NYSTATIN 100,000 UNIT/GM OINT 30 GM TUBE TOPICAL SCH ×2 (08:26→20:33)
[2019-02-13] MEDS: BETAMETHASONE DIPROPIONATE 0.05% OINTMENT 45 GM TUBE TOPICAL SCH (08:26)
[2019-02-13] MEDS: BUDESONIDE 0.5 MG/2 ML NEBU INHALATION SCH ×2 (08:26→19:51)
[2019-02-13] MEDS: TRIAMCINOLONE ACET 0.1% OINTMENT 15 GM TUBE TOPICAL SCH ×2 (09:41→20:33)
[2019-02-13 09:52] LABS: Basophils # (A) 0.1 k/uL (0-0.2); Basophils % (A) 1 %; Eosinophils # (A) 0.9 k/uL (0-0.7); Eosinophils % (A) 14 %; HCT 40.7 % (39.0-53.0); HGB 11.8 gm/dL (13.0-17.5); Hypochromasia Marked; Lymphocytes # (A) 1.1 k/uL (1.0-4.8); Lymphocytes % (A) 16 %; MCH 29.2 pg (25.0-35.0); MCV 100.9 fL (80.0-100.0); Macrocytosis Slight; Mean Platelet Volume 6.3; Monocytes # (A) 0.3 k/uL (0-1.0); Monocytes % (A) 5 %; Neutrophils # (A) 4.3 k/uL (1.3-7.7); Neutrophils % (A) 62 %; Platelet Count 274 k/uL (150-450); RBC 4.04 m/uL (4.30-5.90); RDW 14.7 % (11.5-15.5)
[2019-02-13 10:12] LABS: African American GFR (CKD) >90 (>60 ml/min/1.73 sqM); Anion Gap 3 mmol/L; Blood Urea Nitrogen 11 mg/dL (9-20); Calcium 8.3 mg/dL (8.4-10.2); Carbon Dioxide 39 mmol/L (22-30); Chloride 98 mmol/L (98-107); Glucose 183 mg/dL (74-99); Sodium 140 mmol/L (137-145)
[2019-02-13 12:01] LABS: Glucose,Whole Blood 127 mg/dL (75-99)
[2019-02-13] MEDS: methylPREDNISolone SOD SUCCI 125 MG/2 ML VIAL IV SCH (17:35)
[2019-02-13 17:36] LABS: Glucose,Whole Blood 145 mg/dL (75-99)
--- NOTE | 2019-02-13 19:01 | PN ---
PROGRESS NOTE DATE OF SERVICE: 02/13/2019. REASON FOR FOLLOWUP: Left lower extremity cellulitis. INTERVAL HISTORY: The patient is currently afebrile. Patient has been breathing comfortably. The patient denies having any chest pain or shortness of breath. No cough. No nausea, vomiting, left leg pain, swelling and itching has much improved. PHYSICAL EXAMINATION: Blood pressure 130/70, pulse of 76, temperature of 97. He is 91% on 2 L nasal cannula. General description is an elderly male lying in bed in no distress. Respiratory system: Unlabored breathing and clear to auscultation anteriorly. Heart S1, S2. Regular rate and rhythm. Abdomen soft. No tenderness. Left leg rash has much improved. LABS: Hemoglobin 11.1, white count 7.0, BUN of 11, creatinine 0.72. DIAGNOSTIC IMPRESSION AND PLAN: Patient with left lower extremity cellulitis and element of dermatitis. The patient clinically responding to cefazolin and Mycolog cream to continue with the plan to finish therapy with oral Keflex and continue with Mycolog. Questions and concerns were answered. MMODL / IJN: [id number] /
[2019-02-13 21:18] LABS: Glucose,Whole Blood 212 mg/dL (75-99)
[2019-02-14] MEDS: methylPREDNISolone SOD SUCCI 125 MG/2 ML VIAL IV SCH ×3 (00:07→12:38)
[2019-02-14 06:11] VITALS: BP 126/98; RESP 20; TEMP 97
[2019-02-14 07:25] LABS: Glucose,Whole Blood 157 mg/dL (75-99)
[2019-02-14] MEDS: NICOTINE 21MG/24HR PATCH TRANSDERM SCH (07:46)
[2019-02-14] MEDS: BUDESONIDE 0.5 MG/2 ML NEBU INHALATION SCH (07:46)
[2019-02-14] MEDS: INSULIN ASPART (NovoLOG) 100 UNIT/ML VIAL SQ SCH ×2 (07:46→12:38)
[2019-02-14] MEDS: IPRATROPIUM-ALBUTEROL 3 ML NEB INHALATION SCH ×2 (07:46→11:08)
[2019-02-14] MEDS: NYSTATIN 100,000 UNIT/GM OINT 30 GM TUBE TOPICAL SCH (07:49)
[2019-02-14] MEDS: TRIAMCINOLONE ACET 0.1% OINTMENT 15 GM TUBE TOPICAL SCH (07:49)
[2019-02-14] MEDS ORDERED: PANTOPRAZOLE 40 MG TABLET PO SCH (09:00)
[2019-02-14 11:24] VITALS: PULSE 70
[2019-02-14 11:38] LABS: Basophils % (A) 0 %; Eosinophils % (A) 0 %; HCT 42.1 % (39.0-53.0); HGB 12.9 gm/dL (13.0-17.5); Hypochromasia Marked; Lymphocytes # (A) 0.4 k/uL (1.0-4.8); Lymphocytes % (A) 7 %; MCH 30.8 pg (25.0-35.0); MCHC 30.6 g/dL (31.0-37.0); MCV 100.6 fL (80.0-100.0); Macrocytosis Slight; Mean Platelet Volume 6.4; Monocytes # (A) 0.1 k/uL (0-1.0); Monocytes % (A) 2 %; Neutrophils # (A) 5.1 k/uL (1.3-7.7); Neutrophils % (A) 91 %; Platelet Count 320 k/uL (150-450); RBC 4.18 m/uL (4.30-5.90); RDW 14.7 % (11.5-15.5); WBC 5.6 k/uL (3.8-10.6)
[2019-02-14 11:40] LABS: African American GFR (CKD) >90 (>60 ml/min/1.73 sqM); Anion Gap 6 mmol/L; Blood Urea Nitrogen 14 mg/dL (9-20); Calcium 8.9 mg/dL (8.4-10.2); Carbon Dioxide 37 mmol/L (22-30); Chloride 97 mmol/L (98-107); Glucose 203 mg/dL (74-99); Potassium 4.5 mmol/L (3.5-5.1); Sodium 140 mmol/L (137-145)
--- NOTE | 2019-02-14 16:22 | PN ---
PROGRESS NOTE DATE OF SERVICE: 02/14/2019 REASON FOR FOLLOWUP: Left lower extremity cellulitis and dermatitis. INTERVAL HISTORY: The patient is currently afebrile. He was seen on rounds earlier this afternoon. The patient overall is feeling better and denies having any chest pain, shortness of breath or cough. No nausea, no vomiting. No abdominal pain or diarrhea. PHYSICAL EXAMINATION: Blood pressure 126/98 with a pulse of 82, temperature 97. He is 90% on 2 L nasal cannula. General description is an elderly male lying in bed in no distress. RESPIRATORY SYSTEM: Unlabored breathing. Clear to auscultation anteriorly. HEART: S1, S2. Regular rate and rhythm. ABDOMEN: Soft. No tenderness. Left leg swelling and redness have improved. DIAGNOSTIC IMPRESSION AND PLAN: Patient with left lower extremity cellulitis, also with component of dermatitis with extensive rash. Overall improvement on cefazolin and Kenalog cream. Plan to finish therapy with oral Keflex and short course of Mycolog cream to be applied to the rash area. Follow up in the office in one week. MMODL / IJN: [id number] /
--- NOTE | 2019-02-19 06:31 | DS ---
DISCHARGE SUMMARY DATE OF ADMISSION: 02/12/2019 DATE OF DISCHARGE: 02/14/2019 DISCHARGE MEDICATIONS: 1. Nicotine patch 21 mg daily. 2. Triamcinolone ointment topically b.i.d. 3. Nystatin topical b.i.d. 4. Prednisone 10 mg daily. 5. Protonix 40 mg daily. 6. Tylenol 650 q.6 p.r.n. 7. DuoNeb 3 mL q.i.d. 8. Keflex 500 t.i.d. for a week. CONDITION: Stable. PROGNOSIS: Guarded. AMBULATE: As tolerated. This 73-year-old white male was breathing comfortably. No nausea, vomiting. Swelling and has improved on left lower extremity cellulitis for which he was admitted. The patient responded to cefazolin, Mycolog cream. To finish with oral Keflex and Mycolog to extremity. Follow up as an outpatient for followup for cellulitis of the lower extremity. MMODL / IJN: [id number] /
--- NOTE | 2019-02-19 11:23 | P.DS ---
Providers Date of admission: 02/12/19 11:47 Expected date of discharge: 02/14/19 Attending physician: Chaitanya Huitron Consults: 02/10/19 17:38 Consult Physician Urgent Consulting Provider: Shraddha Edward Consult Reason/Comments: lle cellulitis Do you want consulting provider notified?: Yes 02/11/19 13:51 Consult Physician Routine Consulting Provider: Barrett Mcghee Consult Reason/Comments: Scabies; has been seen in office 2 days ago Do you want consulting provider notified?: Yes [facility] Course: Final diagnoses -Cellulitis of bilateral legs left greater than right secondary to scabies. Possible contact dermatitis related to permethrin as per dermatology. -Scabies rash lower legs, torso, arms -Left leg lymphedema -COPD -Possible interstitial lung disease -Acute hypoxic respiratory failure secondary to the above -Ongoing nicotine dependence Hospital course:This is 73-year-old gentleman admitted with cellulitis of bilateral legs, left greater than right, scabies, lymphedema, COPD, hard of hearing, hypertension, ongoing nicotine dependence and multiple other medical issues. Progressive cellulitis on bilateral legs, torso, arms-recently received one treatment from dermatology for scabies. Placed in a private room with contact isolation maintained. Doppler ultrasound left leg negative for DVT. Maintained on IV vancomycin .Infectious disease and dermatology consult in place with recommendations pending. Cultures pending. Hemoglobin A1c ordered and pending. Afebrile, denies cough. Afebrile, normal WBC. BUN 14, Creatinine 0.82.Potassium 5.3. Denies chest pain, palpitations, increased shortness of breath. 02/12/2019 hemoglobin A1c 7. Evaluated by infectious disease with recommendations noted and appreciated. Vancomycin discontinued with cefazolin initiated with Mycolog cream. Significant rash over entire body-scabies appearing. Chest x-ray reporting no acute cardiopulmonary process, possible interstitial lung disease. Maintained on nebulized bronchodilators, Pulmicort. Afebrile, cultures pending. CO2 34. 02/13/2019 evaluated by dermatology, recommendations noted. Maintained on IV an tibiotics and skin care as per infectious disease. No itching. Afebrile, normal WBC. Vital signs stable. Significant clinical improvement. Cleared by all consults for discharge. Smoking cessation reinforced. Patient is being discharged home in a stable condition with guarded prognosis. EXAM: GENERAL: Alert and oriented 3, no acute distress CARDIOVASCULAR: S1, S2 regular.No murmur RESPIRATION: Breath sounds diminished in the bases. Occasional scattered rhonchi, no crackles or wheezing. ABDOMEN: Soft, nontender . No guarding. no masses palpable. Bowel sounds heard. LEGS: Left leg edema, lymphedema bilateral lower extremity redness with scabs scattered. PSYCHIATRY: Alert and oriented X3, mood and affect normal. NERVOUS SYSTEM: Cranial N 2-12 grossly normal. Moves all 4 limbs. Diffuse weakness No focal deficits. Strength and sensation grossly intact.. Skin: Improving Scattered rash, bilateral legs, torso, back, arms The impression and plan of care has been dictated as directed. : I performed a history and examination of this patient, discussed the same with the dictator. I agree with the dictator's note ,documented as a scribe. Any additional findings or plans will be noted. Patient Condition at Discharge: Stable Plan - Discharge Summary New Discharge Prescriptions: New Nicotine 21Mg/24Hr Patch [Habitrol] 1 patch TRANSDERM DAILY #30 patch Triamcinolone 0.1% Ointment [Kenalog 0.1% Ointment] 1 applic TOPICAL BID #1 tube Nystatin 100,000 Unit/gm Oint [Mycostatin Oint] 1 applic TOPICAL BID #1 tube predniSONE 10 mg PO DIRECTED #30 tab Pantoprazole [Protonix] 40 mg PO DAILY #30 tablet. Acetaminophen Tab [Tylenol] 650 mg PO Q6HR PRN tab PRN Reason: Fever And/ Or Pain Ipratropium-Albuterol Nebulize [Duoneb 0.5 mg-3 mg/3 ml Soln] 3 ml INHALATION RT-QID ampul.neb Cephalexin [Keflex] 500 mg PO Q8HR #21 cap Discharge Medication List Acetaminophen Tab [Tylenol] 650 mg PO Q6HR PRN tab 02/14/19 [Rx] Cephalexin [Keflex] 500 mg PO Q8HR #21 cap 02/14/19 [Rx] Ipratropium-Albuterol Nebulize [Duoneb 0.5 mg-3 mg/3 ml Soln] 3 ml INHALATION RT-QID ampul.neb 02/14/19 [Rx] Nicotine 21Mg/24Hr Patch [Habitrol] 1 patch TRANSDERM DAILY #30 patch 02/14/19 [Rx] Nystatin 100,000 Unit/gm Oint [Mycostatin Oint] 1 applic TOPICAL BID #1 tube 02/14/19 [Rx] Pantoprazole [Protonix] 40 mg PO DAILY #30 tablet.dr 02/14/19 [Rx] Triamcinolone 0.1% Ointment [Kenalog 0.1% Ointment] 1 applic TOPICAL BID #1 tube 02/14/19 [Rx] predniSONE 10 mg PO DIRECTED #30 tab 02/14/19 [Rx] Follow up Appointment(s)/Referral(s): Carlos Mcghee MD [STAFF PHYSICIAN] - 02/19/19 10:15 am (Will see Keila in the office.) Chaitanya Huitron MD [Primary Care Provider] - 02/18/19 1:00 pm (please call office if you need to make changes to our appointment time or day) Patient Instructions/Handouts: Cellulitis (DC) Activity/Diet/Wound Care/Special Instructions: Cardiac diet. Activity as tolerated. Fall precautions. No smoking, literature given. Scabies education provided. Oxygen at 2Liters at home. Discharge Disposition: HOME SELF-CARE
--- NOTE | 2019-02-19 11:25 | P.PN ---
Subjective Progress Note Date: 02/13/19 This is 73-year-old gentleman admitted with cellulitis of bilateral legs, left greater than right, scabies, lymphedema, COPD, hard of hearing, hypertension, ongoing nicotine dependence and multiple other medical issues. Progressive cellulitis on bilateral legs, torso, arms-recently received one treatment from dermatology for scabies. Placed in a private room with contact isolation maintained. Doppler ultrasound left leg negative for DVT. Maintained on IV vancomycin .Infectious disease and dermatology consult in place with recommendations pending. Cultures pending. Hemoglobin A1c ordered and pending. Afebrile, denies cough. Afebrile, normal WBC. BUN 14, Creatinine 0.82.Potassium 5.3. Denies chest pain, palpitations, increased shortness of breath. 02/12/2019 hemoglobin A1c 7. Evaluated by infectious disease with recommendations noted and appreciated. Vancomycin discontinued with cefazolin initiated with Mycolog cream. Significant rash over entire body-scabies appearing. Chest x-ray reporting no acute cardiopulmonary process, possible interstitial lung disease. Maintained on nebulized bronchodilators, Pulmicort. Afebrile, cultures pending. CO2 34. 02/13/2019 evaluated by dermatology, recommendations noted. Maintained on IV antibiotics and skin care as per infectious disease. No itching. Afebrile, normal WBC. Vital signs stable. Objective - Vital Signs Vital signs: Vital Signs Temp 96.4 F L 02/13/19 05:38 Pulse 80 02/13/19 08:38 Resp 18 02/13/19 08:00 BP 115/65 02/13/19 05:38 Pulse Ox 91 L 02/13/19 05:38 Intake & Output 02/12/19 02/13/19 02/13/19 18:59 06:59 18:59 Intake Total 540 Output Total 600 Balance 540 -600 Intake: Oral 540 Output: Urine 600 Other: Voiding Method Toilet Toilet Toilet Urinal Urinal Urinal # Voids 6 - Exam PHYSICAL EXAM: VITAL SIGNS: As above GENERAL: Sitting up in bed, no acute distress HEENT: Conjunctivae normal. eyes normal. Oral mucosa moist, hard of hearing NECK: No JVD. No thyroid enlargement. No LNs CARDIOVASCULAR: S1, S2 regular.No murmur RESPIRATION: Breath sounds diminished in the bases. Occasional scattered rhonchi, no crackles or wheezing. ABDOMEN: Soft, nontender . No guarding. no masses palpable. Bowel sounds heard. LEGS: Left leg edema, lymphedema bilateral lower extremity redness with scabs scattered. PSYCHIATRY: Alert and oriented X3, mood and affect normal. NERVOUS SYSTEM: Cranial N 2-12 grossly normal. Moves all 4 limbs. Diffuse weakness No focal deficits. Strength and sensation grossly intact.. Skin: Scattered rash, redness with scabs over her bilateral legs, torso, back, arms - Labs CBC & Chem 7: 02/14/19 10:13 02/14/19 10:13 Labs: Abnormal Lab Results - Last 24 Hours (Table) 02/12/19 02/13/19 02/13/19 Range/Units 20:22 09:28 09:28 RBC 4.04 L (4.30-5.90) m/uL Hgb 11.8 L (13.0-17.5) gm/dL MCV 100.9 H (80.0-100.0) fL MCHC 29.0 L (31.0-37.0) g/dL Eosinophils # 0.9 H (0-0.7) k/uL Carbon Dioxide 39 H (22-30) mmol/L Glucose 183 H (74-99) mg/dL POC Glucose (mg/dL) 140 H (75-99) mg/dL Calcium 8.3 L (8.4-10.2) mg/dL Microbiology - Last 24 Hours (Table) 02/10/19 18:05 Blood Culture - Preliminary Blood No Growth after 48 hours Assessment and Plan Assessment: -Cellulitis of bilateral legs left greater than right secondary to scabies. Possible contact dermatitis related to permethrin as per dermatology. -Scabies rash lower legs, torso, arms -Left leg lymphedema -COPD -Possible interstitial lung disease -Acute hypoxic respiratory failure secondary to the above -Ongoing nicotine dependence Plan: Continue on current medication regime ,monitoring and symptomatic treatment. IV antibiotics and wound care as per infectious disease. Smoking cessation reinforced. Discharge planning in progress for tomorrow. The impression and plan of care has been dictated as directed. : I performed a history and examination of this patient, discussed the same with the dictator. I agree with the dictator's note ,documented as a scribe. Any additional findings or plans will be noted.
== END 2019-02-14 14:08 | disposition home or self-care (01) | DRG 602 ==
LOC: EC 14:21 → 4MS4W 17:38 → OBSVTOIN 02-12 11:47
PROVIDERS: ADMIT Family Medicine; ATTEND Family Medicine
DX: L03.116 Cellulitis of left lower limb (principal); J96.01 Acute respiratory failure with hypoxia; J84.9 Interstitial pulmonary disease, unspecified; S81.802A Unspecified open wound, left lower leg, initial encounter; E11.9 Type 2 diabetes mellitus without complications; B86 Scabies; L03.115 Cellulitis of right lower limb; J44.9 Chronic obstructive pulmonary disease, unspecified; L25.1 Unspecified contact dermatitis due to drugs in contact with skin; T49.8X5A Adverse effect of other topical agents, initial encounter; I89.0 Lymphedema, not elsewhere classified; I10 Essential (primary) hypertension; E78.5 Hyperlipidemia, unspecified; H91.90 Unspecified hearing loss, unspecified ear; F17.200 Nicotine dependence, unspecified, uncomplicated; Z71.6 Tobacco abuse counseling; Z99.81 Dependence on supplemental oxygen; Z79.899 Other long term (current) drug therapy; Z78.9 Other specified health status
CPT/HCPCS: 36415; 71046; 80048; 80053; 83036; 83880; 84443; 85025; 85652; 86140; 87040; 94640; 94760; 96365; 99284